=== PATIENT | female | born 1960 | race Caucasian/White ===

== ENCOUNTER 2024-04-04 07:10 | Day surgery (SDC) | payer OTHER ==
[~2024-04-04] VITALS: Ht 162.6 cm; Wt 91.6 kg
[2024-04-04] MEDS ORDERED: MEPERIDINE 100 MG INJ. 100 MG/ML VIAL ONE (07:34)
[2024-04-04] MEDS ORDERED: MIDAZOLAM HCL 5 MG/5 ML VIAL ONE (07:34)
[2024-04-04] MEDS ORDERED: SIMETHICONE 40 MG/0.6 ML ML ONE (07:34)
[2024-04-04 08:38] VITALS: O2SAT 96
[2024-04-04] MEDS ORDERED: ATROPINE SULFATE 0.4 MG/ML VIAL ONE ×2 (09:18→09:23)
[2024-04-04] MEDS: ONDANSETRON HCL 4 MG/2 ML VIAL ONE (10:24)
[2024-04-04] MEDS ORDERED: ONDANSETRON HCL 4 MG/2 ML VIAL IVP ONE (10:30)
[2024-04-04 13:42] VITALS: BP_SYST 92; PULSE 59; RESP 17
== END 2024-04-04 11:03 | disposition home or self-care (01) ==
LOC: SDS 07:10 → SMU 07:12 → SDS 11:03
PROVIDERS: ATTEND Student in an Organized Health Care Education/Training Program
DX: R19.5 Other fecal abnormalities (principal); D12.0 Benign neoplasm of cecum; D12.2 Benign neoplasm of ascending colon; K57.30 Diverticulosis of large intestine without perforation or abscess without bleeding; K64.8 Other hemorrhoids; K64.4 Residual hemorrhoidal skin tags; I10 Essential (primary) hypertension; J45.909 Unspecified asthma, uncomplicated; Z79.899 Other long term (current) drug therapy; Z88.5 Allergy status to narcotic agent
CPT/HCPCS: 45385; 99152; 88305; 99153; G0378; J0461; J2250; J2405; J2175